=== PATIENT | male | born 1935 | race Caucasian/White ===

== ENCOUNTER 2016-12-06 11:09 | Inpatient (IN) ==
[2016-12-06] MEDS ORDERED: Ondansetron 4 MG/2 ML VIAL IV STA (12:11)
[2016-12-06] MEDS ORDERED: *HR* Morphine 2 MG/ML SYRINGE IVP ONE (12:11)
--- NOTE | 2016-12-06 12:14 | Emergency Department Note ---
Disposition Clinical Impression: Cellulitis of scrotum Disposition: Admitted As Inpatient Condition: Good Time of Disposition: 13:47 Male Urogenital HPI - General Chief complaint: ED Urogenital-Male Stated complaint: Scrotal Pain/HTN Time Seen by Provider: 12/06/16 11:56 Source: patient Mode of arrival: ambulatory Limitations: no limitations Nursing Notes Reviewed: Yes Vital Signs Reviewed: Yes - History of Present Illness HPI Narrative: 81-year-old male presents with 8 weeks of testicle pain and swelling that is worse over the last 1-2 days and has been weeping clear fluid over the last 1-2 days. He states that he is being treated by dermatology for a rash that used to be all over his body, but is now mostly localized to his scrotum. His press tender long goods is in [facility], and he is not sure what the rash is called. He does note that 2 weeks ago he was seen at an outside emergency department and prescribed steroids and antibiotics for this condition. He has not had significant improvement with those. His scrotal skin is thick and red and painful. It is not associated with a nausea, vomiting, chest pain or shortness of breath. He does note that his lower extremities are mildly swollen as well. He denies any headache, neurologic symptoms, respiratory symptoms. He denies any concern for STD. Pt Subjective Complaint: testicle pain - Related Data Home Medications Medication Instructions Recorded Confirmed Acetaminophen [Tylenol] 500 mg PO Q6HR PRN 12/06/16 12/06/16 Amoxicillin/Clavulanate [Augmentin] 875 mg PO BIDWM 12/06/16 12/06/16 PredniSONE [Prednisone] 30 mg PO DAILY 12/06/16 12/06/16 Allergies Allergy/AdvReac Type Severity Reaction Status Date / Time No Known Allergies Allergy Verified 12/06/16 11:14 All systems ED: reviewed and negative except as stated. Past Medical History - Past Medical History Attestation: Yes The following information was validated with the patient. Source: patient Medical history: Reports: no medical history - Social History Smoking Status: Never smoker Alcohol use: Reports: none Drug use: Reports: none Physical Exam - Head Head exam: atraumatic, normocephalic, normal inspection - Eye Eye exam: Present: normal appearance, PERRL, EOMI - ENT ENT exam: normal exam, normal oropharynx, mucous membranes moist - Neck Neck exam: Present: normal inspection, full ROM, trachea midline - Chest Chest inspection: Present: normal inspection, symmetric chest wall rise - Respiratory Respiratory exam: Clear to auscultation bilaterally without wheezes rales or rhonchi Cardiovascular Cardiovascular exam: Present: regular rate, normal rhythm, normal heart sounds - Abdominal Exam Abdominal exam: Present: soft, Non-Tender. Absent: tenderness, distention, guarding, rebound, rigidity Genital exam shows erythematous tender scrotum weeping clear fluid that is significantly tender to touch. - Extremities Exam Mild Pedal edema bilaterally. - Back Exam Back exam: Present: normal inspection, full ROM. Absent: tenderness, CVA tenderness (R), CVA tenderness (L) - Neurological Exam Neurological exam: Present: alert, oriented X3, CN II-XII intact - Psychiatric Psychiatric exam: Present: normal affect, normal mood - Skin Skin exam: Present: warm, dry, intact, normal color - General Limitations: no limitations Course - Reevaluation(s) Reevaluation #1: Symptoms are partially improved after morphine and menstruation. On further history, patient notes that he recently completed Augmentin for antibiotics. Time: 13:26 Reevaluation #2: Case d/w PA at [facility]. Notified that the patient developed his symptoms after her inappropriately used 5-FU on his scrotum that was supposed to be used for precancerous. He developed a severe dermatitis. This did improve partially after treatment with Cipro and steroids, but has since been worsening. He was last seen 3 days ago when his symptoms seem to be worsening in the office at that time. He is tapering his steroids and is nearly complete with them. The PA is aware that the patient will be admitted for concern for scrotal cellulitis and is in agreement with that plan. No sign of Solitario's gangrene on CT scan. We will admit for scrotal cellulitis. Time: 13:46 Reevaluation #3: Accepted by Dr. Chávez. Vital Signs Temperature 98.8 F 12/06/16 11:11 Pulse Rate 85 12/06/16 11:11 Respiratory Rate 18 12/06/16 11:11 Blood Pressure 192/67 12/06/16 11:11 O2 Sat by Pulse Oximetry 99 12/06/16 11:11 Temperature 98.2 F 02/02/17 16:04 Pulse Rate 87 12/06/16 16:04 Respiratory Rate 16 12/06/16 16:04 Blood Pressure 160/84 12/06/16 16:04 O2 Sat by Pulse Oximetry 96 12/06/16 16:04 Oxygen Delivery Oxygen Delivery Room Air Urogenital-Male - Lab Data Result diagrams: 12/06/16 12:27 12/06/16 12:27 Lab Results 12/06/16 12/06/16 12/06/16 Range/Units 12:25 12:27 12:27 WBC 15.5 H (4.3-11.1) K/mcL RBC 4.94 (4.19-5.50) M/mcL Hgb 14.8 (12.9-16.9) g/dL Hct 44.8 (37.5-50.1) % MCV 90.7 (83.0-100.0) fL MCH 30.0 (28.0-33.3) pg MCHC 33.0 (31.6-35.5) g/dL RDW 14.4 (11.5-14.5) % Plt Count 251 (140-400) K/mcL MPV 9.5 (9.4-12.4) fL Immature Gran % 0.8 (0-4) % Seg Neutrophils % 87.1 % Lymphocytes % 6.5 % Monocytes % 5.4 % Eosinophils % 0.1 % Basophils % 0.1 % Neutrophils # 13.5 H (1.6-8.9) K/mcL Lymphocytes # 1.0 (0.6-4.6) K/mcL Monocytes # 0.8 (0.0-1.3) K/mcL Eosinophils # 0.0 (0.0-0.6) K/mcL Basophils # 0.0 (0.0-0.2) K/mcL Sodium 138 (136-145) mEq/L Potassium 3.9 (3.5-4.5) mEq/L Chloride 105 (98-109) mEq/L Carbon Dioxide 22 (19-29) mEq/L BUN 19 (8-26) mg/dL Creatinine 0.87 (0.72-1.25) mg/dL Est GFR ( Amer) > 60 (> 60) Est GFR (Non-Af Amer) > 60 (> 60) BUN/Creatinine Ratio 22 (6-26) Glucose 96 (70-99) mg/dL Calculated Osmolality 288 (280-300) Calcium 8.7 (8.6-10.8) mg/dL Urine Color Yellow (Yellow) Urine Clarity Clear (Clear) Urine pH 6.0 (5.0-8.0) pH Units Ur Specific [place] 1.015 (1.010-1.025) Urine Protein Negative (Neg-Trace) mg/dL Urine Glucose (UA) Normal (Normal) mg/dL Urine Ketones Trace H (Negative) mg/dL Urine Blood Negative (Negative) Urine Nitrite Negative (Negative) Urine Bilirubin Negative (Negative) Urine Urobilinogen Normal (Normal) mg/dL Ur Leukocyte Esterase Negative (Negative) Ur Culture Indicated? NO (NO)
[2016-12-06 12:33] LABS: Bilirubin,Urine Negative (Negative); Blood,Urine Negative (Negative); Clarity,Urine Clear (Clear); Color,Urine Yellow (Yellow); Glucose,Urine (UA) Normal (Normal); Ketones,Urine Trace mg/dL (Negative); Leukocyte Esterase,Urine Negative (Negative); Nitrite,Urine Negative (Negative); Protein,Urine Negative (Neg-Trace); Specific Gravity,Urine 1.015 (1.010-1.025); Urobilinogen,Urine Normal (Normal)
[2016-12-06 12:36] LABS: Basophils % 0.1 %; Eosinophils % 0.1 %; Hematocrit 44.8 % (37.5-50.1); Hemoglobin 14.8 g/dL (12.9-16.9); Immature Granulocytes % 0.8 % (0-4); Lymphocytes % 6.5 %; Mean Corpuscular Volume 90.7 fL (83.0-100.0); Mean Platelet Volume 9.5 fL (9.4-12.4); Monocytes # 0.8 K/mcL (0.0-1.3); Monocytes % 5.4 %; Neutrophils # 13.5 K/mcL (1.6-8.9); Platelet Count 251 K/mcL (140-400); Red Blood Count 4.94 M/mcL (4.19-5.50); Red Cell Distribution Width 14.4 % (11.5-14.5); Segmented Neutrophils % 87.1 %
[2016-12-06 12:45] LABS: BUN/Creatinine Ratio 22 (6-26); Blood Urea Nitrogen 19 mg/dL (8-26); Calcium 8.7 mg/dL (8.6-10.8); Carbon Dioxide 22 mEq/L (19-29); Chloride 105 mEq/L (98-109); Glucose 96 mg/dL (70-99); Osmolality,Calculated 288 (280-300); Potassium 3.9 mEq/L (3.5-4.5); Sodium 138 mEq/L (136-145); eGFR For African Americans > 60 (> 60); eGFR For Non-African Americans > 60 (> 60)
[2016-12-06] MEDS ORDERED: Piperacillin/Tazobactam 4.5 GM in D5% in Water (Mini-Bag+) 100 ML IVPB ONE (13:33)
[2016-12-06] MEDS ORDERED: *HR* HYDROmorphone (PF) 1 MG/ML SYRINGE IVP ONE (13:43)
--- NOTE | 2016-12-06 13:47 | Emergency Department Note ---
START Narrative - START START: I examined this patient and my medical decision-making was reviewed with the REGIONAL LOSS PREVENTION MANAGER/PA/Advanced Practice Nurse/Resident Physician. I agree with the documented findings, disposition and treatment plan as described except to the extent set forth below. ED attending note: Patient seen with emergency medicine resident Dr. Saeed. Please see a copy of his note for details of the H&P, evaluation, management and disposition of this patient. We independently had [id number] contact with the patient Briefly: This 81-year-old male has a rash and swollen scrotum. He was being prescribed 5-fluorouracil for cancer treatment but he thought was a rash cream in place local scrotum patient developed a cellulitis CT scan shows that there is no gas forming bacteria mild cellulitis without any intrinsic invasiveness. Elevated white count. Patient be admitted for IV antibiotics. Patient stable.
[2016-12-06] MEDS ORDERED: MOM Conc 10 ML UD.LIQ PO PRN (16:01)
[2016-12-06] MEDS ORDERED: Naloxone 0.4 MG/ML INJ IVP PRN (16:01)
[2016-12-06] MEDS ORDERED: Acetaminophen 325 MG TABLET PO PRN (16:01)
[2016-12-06] MEDS ORDERED: Ondansetron 4 MG/2 ML VIAL IVP PRN (16:01)
--- NOTE | 2016-12-06 16:19 | Internal Med History&Physical ---
<Judi Shields - Last Filed: 12/06/16 18:35> Date of Encounter: 12/06/16 Time of Encounter: 15:40 Assessment and Plan (1) Cellulitis of scrotum Current visit: Yes Status: Acute Pt was recently diagnosed with scrotal cellullitis at dermatology office in [place] and was placed on Augmentin and Prednisone, which he is currently still taking. Pt's scrotum is red, warm, excoriated, painful to light touch and is draining small amount of serous fluid. Pt states that at times it causes his clothing to stick and when he removes his clothing, it tears the skin and causes more pain. Skin and blood cultures are pending. CT shos prominent soft tissue swelling and fluid within scrotal tissues without foci of gas and hydrocele. White count is elevated at 15.5 today. Tylenol 675mg po q6h prn mild pain [place] 5/325mg po q4h prn moderate pain Monitor labs Blood and urine cultures pending Continue Zosyn 3.375g IV x 3 Vancomycin 1,000mg IV BID (2) Hypertension Current visit: Yes Status: Chronic Pt was taken off of his medications for suspected drug rash. Pt recalls taking HCTZ 12.5mg po daily. BP 160/84 last reading, will order first dose now. Pt denies dizziness, REINA. Will continue to monitor VS throughout admission and restart HCTZ 12.5mg po daily. Qualifiers: Hypertension type: essential hypertension Qualified Code(s): I10 - Essential (primary) hypertension Internal Medicine - H&P: HPI Chief complaint: scrotal swelling and pain Admitted From: Home Plans for Post Hospital Care: Home History of present illness: Mr. Valentin is a 81 year old male who presents to the ED with approximately 8 week history of scrotal pain, with redness, swelling, and cl drainage x 1 week. Pt has been seeing family resource management professor in [place], [place] for about a year and a half for pruritic rash, which apparently has cleared up. Pt has also been using 5 Fluorouracil that was meant for his pre-cancerous lesions, as an anti-itch cream for his scrotum. Pt also was being treated for a possible drug rash and was told to stop all of his medications, including HCTZ, fish oil, vitamins, and aspirin, which he did. He was diagnosed with scrotal cellulitis and was placed on Augmentin and Prednisone within the last week. Dermatology told him that they cannot write prescriptions for pain medication and told him to take his 's Oxycodone 10mg, which he has been taking primarily at night to help him sleep. His scrotum is red, warm, painful to touch, and is excoriated in multiple places. Serous drng noted to skin and underwear during exam. Pain is constant, rated "30 out of 10", and nothing really relieves it. Sometimes the pain is so bad that he has to kneel on the floor with his legs spread apart for over an hour and he then can get up. Pt and his are poor historians, ER physician spoke with dermatology PA to gather information. He denies urinary symptoms or fever, no abd pain, n/v/d. His past medical history is pertinent for R sided CVA in 1984, HTN, and this rash for the last year and a half. Past Med Surg Social Fam HX - Past Medical History Source: patient, obtained from family Medical history: CVA - Social History Smoking Status: Never smoker Alcohol use: none Drug use: none Internal Medicine - H&P: Meds Acetaminophen [Tylenol] 500 mg PO Q6HR PRN 12/06/16 [History] Amoxicillin/Clavulanate [Augmentin] 875 mg PO BIDWM 12/06/16 [History] PredniSONE [Prednisone] 30 mg PO DAILY 12/06/16 [History] Allergies No Known Allergies Allergy (Verified 12/06/16 11:14) All Systems PM: A 10-system review of systems was performed and is negative for pertinent findings except as documented above in the HPI. - Constitutional Constitutional: no chills, no fever(s), no weakness - Cardiovascular Cardiovascular ROS IM: no edema - Gastrointestinal Gastrointestinal: no abdominal pain, no diarrhea, no nausea, no vomiting - Genitourinary Genitourinary ROS male: scrotal swelling, testicular pain, no difficulty urinating, no dysuria, no flank pain, no penile discharge, no urinary frequency , no urinary incontinence, no urinary urgency - Musculoskeletal Musculoskeletal ROS IM: no back pain - Integumentary Integumentary IM: pruritus, rash - Constitutional Vitals: Temp Pulse Resp BP Pulse Ox 98.2 F 87 16 160/84 96 12/06/16 16:04 12/06/16 16:04 12/06/16 16:04 12/06/16 16:04 12/06/16 16:04 General appearance: Present: A&O X 3, pleasant Exam: Pt has difficulty walking, sitting, stands for exam. - Neck Neck exam general surgery: Absent: lymphadenopathy, tenderness - Respiratory Respiratory exam: Present: CTAB. Absent: chest wall tenderness, decreased breath sounds, rhonchi, wheezes - Cardiovascular Cardiovascular exam: Present: RRR, +S1, +S2. Absent: diastolic murmur, systolic murmur, tachycardia - GI/Abdominal GI/Abdominal exam: Present: distended, soft. Absent: tenderness - Neurological Exam Neurological exam: Present: alert, oriented X3, no focal deficits, strengths equal and symetr throughout - Skin Skin exam: Present: excoriation, warm - Expanded Skin Exam Distribution of rash: Present: genitals Description of rash: Present: blisters, discharge, swelling, tenderness Internal Med - H&P Results - Labs CBC & Chem 7: 12/06/16 12:27 12/06/16 12:27 <Melody Horner - Last Filed: 12/06/16 18:54> Date of Encounter: 12/06/16 Time of Encounter: 18:00 Internal Medicine - H&P: HPI History of present illness: Mr. Valentin is a 81 year old male All Systems PM: A 10-system review of systems was performed and is negative for pertinent findings except as documented above in the HPI. - Constitutional Vitals: Temp Pulse Resp BP Pulse Ox 98.2 F 87 16 160/84 96 12/06/16 16:04 12/06/16 16:04 12/06/16 16:04 12/06/16 16:04 12/06/16 16:04 Internal Med - H&P Results - Labs CBC & Chem 7: 12/06/16 12:27 12/06/16 12:27 - Attending Attestation Patient is an 81y/o male with PMH of HTN, CVA (with no residual defects), and chronic diffuse body rash who presents to the ER for evaluation of worsening scrotal rash and pain. Patient was seen and examined at bedside. Resting in bed and states his pain is finally controlled. He received Dilaudid in the ER which provided him with adequate pain relief however the pain worsens with any movement. It is unclear of the medications patient was using prior to his hospitalization however the scrotal rash initially started about 8 weeks ago and for the last two weeks has worsened significantly. He was currently undergoing treatment for the rash with his family resource management professor who suggested he comes to the ER due to worsening symptoms. He was taking Augmentin and Prednisone prior to his hospitalization. In the ER, he received Zosyn. Patient is noted to have leukocytosis with significant erythema and serous drainage at the scrotal sac. He will be started on Vancomycin in addition to Zosyn. His home medications will be started for his HTN. If hypertension persists, will add Hydralazine PRN. Consider ID evaluation with Dr. Encarnacion if symptoms do not improve with current abx regimen. Dilaudid prn pain DVT ppx I have discussed the case with the ORCHARDIST (Judi Shields) and agree with her assessment and plan.
[2016-12-06] MEDS: *HR* HYDROcodone/Acet 5/325 mg TABLET PO PRN (16:34)
[2016-12-06] MEDS: hydroCHLOROthiazide 25 MG TABLET PO SCH (16:39)
[2016-12-06] MEDS ORDERED: hydroCHLOROthiazide 25 MG TABLET PO SCH (19:15)
[2016-12-06] MEDS: *HR* Heparin 5,000 UNIT/ML VIAL SQ SCH (21:12)
[2016-12-06] MEDS: Vancomycin 1,250 MG in D5% in Water 250 ML IVPB SCH (21:12)
[2016-12-06] MEDS: *HR* HYDROmorphone (PF) 1 MG/ML SYRINGE IVP PRN (23:51)
[2016-12-07] MEDS ORDERED: Nitroglycerin 0.4 MG TAB.SUBL SL ONE (00:46)
[2016-12-07] MEDS ORDERED: Aspirin 81 MG TAB.CHEW PO ONE (00:46)
[2016-12-07] MEDS ORDERED: *HR* Morphine 2 MG/ML SYRINGE IVP ONE (00:46)
[2016-12-07] MEDS ORDERED: *HR* Metoprolol 5 MG/5 ML VIAL IVP ONE (01:09)
[2016-12-07] MEDS ORDERED: Aspirin 81 MG TAB.CHEW ONE (01:18)
[2016-12-07] MEDS ORDERED: Pantoprazole 40 MG in 0.9 % Sodium Chloride 50 ML IVPB ONE (01:26)
[2016-12-07] MEDS ORDERED: GI Cocktail 40 ML EACH PO ONE (01:26)
[2016-12-07 02:45] LABS: Basophils % 0.1 %; Eosinophils % 0.1 %; Hematocrit 46.8 % (37.5-50.1); Hemoglobin 15.7 g/dL (12.9-16.9); Immature Granulocytes % 0.6 % (0-4); Immature Platelets 3.6 % (1.1-6.1); Lymphocytes # 1.3 K/mcL (0.6-4.6); Lymphocytes % 11.2 %; Mean Corpuscular HGB Conc 33.5 g/dL (31.6-35.5); Mean Corpuscular Hemoglobin 30.4 pg (28.0-33.3); Mean Corpuscular Volume 90.5 fL (83.0-100.0); Mean Platelet Volume 9.7 fL (9.4-12.4); Monocytes # 0.9 K/mcL (0.0-1.3); Monocytes % 7.6 %; Neutrophils # 9.7 K/mcL (1.6-8.9); Platelet Count 298 K/mcL (140-400); Red Blood Count 5.17 M/mcL (4.19-5.50); Red Cell Distribution Width 14.4 % (11.5-14.5); Segmented Neutrophils % 80.4 %
[2016-12-07 02:50] LABS: Prothrombin Time 11.1 Seconds (9.4-12.1)
[2016-12-07 02:53] LABS: Activated Partial Thrombo Time 27.1 Seconds (26.0-36.0)
[2016-12-07 02:56] LABS: BUN/Creatinine Ratio 19 (6-26); Blood Urea Nitrogen 20 mg/dL (8-26); Carbon Dioxide 22 mEq/L (19-29); Chloride 104 mEq/L (98-109); Glucose 102 mg/dL (70-99); Osmolality,Calculated 291 (280-300); Sodium 139 mEq/L (136-145); eGFR For African Americans > 60 (> 60); eGFR For Non-African Americans > 60 (> 60)
[2016-12-07 02:58] LABS: Potassium 4.1 mEq/L (3.5-4.5)
[2016-12-07] MEDS ORDERED: Nitroglycerin 0.4 MG TAB.SUBL SL PRN (03:14)
[2016-12-07] MEDS ORDERED: *HR* Morphine 2 MG/ML SYRINGE IVP PRN (03:15)
[2016-12-07] MEDS: Piperacillin/Tazobactam 3.375 GM in D5% in Water (Mini-Bag+) 100 ML IVPB SCH ×3 (04:16→20:01)
[2016-12-07] MEDS: Vancomycin 1,250 MG in D5% in Water 250 ML IVPB SCH ×2 (06:20→17:31)
[2016-12-07] MEDS: *HR* Heparin 5,000 UNIT/ML VIAL SQ SCH ×2 (06:20→17:30)
--- NOTE | 2016-12-07 07:10 | Event Note ---
Date of Encounter: 12/07/16 Time of Encounter: 00:45 Patient with complaint of substernal cp. Nurse sent [email or web address] message at 00:44 to this effect. EKG with RBBB, R axis deviation, and low voltage in inferior leads , no comparison available. Pain described as crushing pain greater than 10/10. Pain radiated to jaw. Patient was adamant that pain was due to gas. He stated that belching resolved the jaw pain. Initial trop was 0.09. Serial trops, pending.
[2016-12-07] MEDS: hydroCHLOROthiazide 25 MG TABLET PO SCH (08:29)
--- NOTE | 2016-12-07 08:40 | Internal Med Progress Note ---
<Justo Menendez - Last Filed: 12/07/16 11:33> Date of Encounter: 12/07/16 Time of Encounter: 08:39 - Assessment and plan (1) Scrotal erythema Current Visit: Yes Status: Acute Assessment and plan: Pelvic CT reviewed, no focal gas but prominent swelling and fluid in tissue, cellulitis vs other etiologies, will increase pain med, urology consult, leukocytosis slightly improved, con't vanco and zosyn for now. (2) Cellulitis of scrotum Current Visit: Yes Status: Acute Assessment and plan: Possible cellulitis, looks very extensive and painful, will con't vanco and zosyn for now until urology seen him. (3) Elevated troponin Current Visit: Yes Status: Acute Assessment and plan: Adynamic, likely 2/2 demand ischemia in a setting of scrotum cellulitis with sepsis, no chest pain this AM. (4) Hypertension Current Visit: Yes Status: Chronic Assessment and plan: Still hypertensive, will increase HCTZ. (5) DVT prophylaxis Current Visit: Yes Status: Acute Assessment and plan: Heparin SQ. - Subjective Interval history: Pt seen and examined, still very painful scrotum to even light touch, no nausea/ emesis. - Constitutional Vitals: Temp Pulse Resp BP Pulse Ox 97.8 F 60 16 176/73 95 12/07/16 06:38 12/07/16 06:38 12/07/16 06:38 12/07/16 06:38 12/07/16 06:38 General appearance: Present: cooperative, A&O X 3, answers questions appropriately - Head Head exam: Present: atraumatic, normocephalic - Eye Eye exam: Present: PERRL, conjuntiva pink, sclera anicteric Pupils: Present: PERRL - Neck Neck exam general surgery: Present: supple, trachea midline. Absent: lymphadenopathy - Respiratory Respiratory exam: Present: CTAB. Absent: accessory muscle use, rales, rhonchi, wheezes - Cardiovascular Cardiovascular exam: Present: RRR, +S1, +S2. Absent: diastolic murmur, gallop, rubs, systolic murmur - GI/Abdominal GI/Abdominal exam: Present: normal bowel sounds, soft, no peritoneal signs. Absent: distended, tenderness - exam: Present: scrotal swelling (erythematous, very tender to touch, no necrotic skin change), testicular tenderness. Absent: urethral discharge - Extremities Exam Extremities exam: Present: warm, radial pulses palpable and symetrical. Absent : calf tenderness, cyanotic, pedal edema - Neurological Exam Neurological exam: Present: CN II-XII intact, oriented X3, no focal deficits. Absent: pronater drift, facial droop, speech deficit - Skin Skin exam: Present: dry, intact Internal Medicine: Result - Labs CBC & Chem 7: 12/07/16 01:39 12/07/16 01:39 Labs: Short CBC 12/07/16 Range/Units 01:39 WBC 12.0 H (4.3-11.1) K/mcL Hgb 15.7 (12.9-16.9) g/dL Hct 46.8 (37.5-50.1) % Plt Count 298 (140-400) K/mcL Neutrophils # 9.7 H (1.6-8.9) K/mcL BMP 12/07/16 01:39 Sodium 139 Potassium 4.1 Chloride 104 Carbon Dioxide 22 BUN 20 Creatinine 1.04 Glucose 102 H Calcium 9.0 Cardiac Enzymes 12/07/16 12/07/16 Range/Units 01:39 06:24 Troponin I 0.09 H* 0.09 H* (0-0.03) ng/mL - ABG Interpretation ABG results: PT/INR, D-dimer PT 11.1 Seconds (9.4-12.1) 12/07/16 01:39 Consult Discharge Plan - Plan Referrals: Scarlett Brito CNP [Primary Care Provider] - <Max Street - Last Filed: 12/07/16 13:24> Date of Encounter: 12/07/16 - Constitutional Vitals: Temp Pulse Resp BP Pulse Ox 98.0 F 66 16 118/54 98 12/07/16 10:24 12/07/16 10:24 12/07/16 10:24 12/07/16 10:24 12/07/16 10:24 Internal Medicine: Result - Labs CBC & Chem 7: 12/07/16 01:39 12/07/16 01:39 - ABG Interpretation ABG results: PT/INR, D-dimer PT 11.1 Seconds (9.4-12.1) 12/07/16 01:39 - Attending Attestation I examined this patient and my medical decision-making was reviewed with the FLATWARE MAKER/PA/Advanced Practice Nurse/Resident Physician. I agree with the documented findings, disposition and treatment plan as described except to the extent set forth below. The patient was seen and examined during rounds. Extremities with the physical examination findings, assessment and plan as documented by Dr. Justo Menendez. Briefly, patient initially had criteria for sepsis likely secondary to a scrotal infection consistent with cellulitis. CT scan of the pelvis did not reveal findings consistent with Solitario's gangrene, no crepitations noted in the physical exam. We will continue with broad- spectrum antibiotics, pain control. A consultation with urology has been requested.
[2016-12-07] MEDS: *HR* HYDROcodone/Acet 5/325 mg TABLET PO PRN (09:28)
[2016-12-07] MEDS: *HR* HYDROmorphone (PF) 1 MG/ML SYRINGE IVP PRN ×3 (09:29→20:01)
[2016-12-07] MEDS ORDERED: *HR* HYDROmorphone (PF) 1 MG/ML SYRINGE IVP PRN (10:46)
[2016-12-07] MEDS ORDERED: Lidocaine (Urojet) 10 ML JEL.PF.APP TP PRN (17:30)
--- NOTE | 2016-12-07 17:30 | Urology - Consult Note ---
Date of Encounter: 12/07/16 Time of Encounter: 17:19 - Assessment and Plan (1) Rash on scrotum Current Visit: Yes Status: Acute Assessment and plan: Will add lidocaine jelly for pain control. We will perform biopsy later this weekend. Unsure of etiology this time. Urology CN:[facility] Consult date: 12/07/16 Reason for consult Urology: Other (scrotal rash) Requesting physician: Max Street History of present illness: Mr. Valentin is a very pleasant 81-year-old male who states he has had a scrotal rash for the past 8 weeks. Patient states he was evaluated by another urologist and table games floor supervisor for this. He states he was placed on some sort of cream which has not helped. Patient also was placed on oral steroids which has not seemed to help. Patient arrived to our ED yesterday where CT scan was done which showed scrotal wall thickening without obvious cellulitis. Patient did have a leukocytosis of 15,000. This has improved with IV fluids as well as IV antibiotics. Patient has not had a biopsy of his scrotal lesion. Patient states that he has had a generalized rash throughout his body for the past 8 months. Dermatology has performed a biopsy of this. Unknown results of this biopsy. Past Med Surg Social Fam HX - Past Medical History Medical history: no medical history Psychiatric history: no psych history - Social History Smoking Status: Never smoker Smokeless Tobacco Status: No Alcohol use: none Drug use: none Medications and Allergies Acetaminophen [Tylenol] 500 mg PO Q6HR PRN 12/06/16 [History] Amoxicillin/Clavulanate [Augmentin] 875 mg PO BIDWM 12/06/16 [History] PredniSONE [Prednisone] 30 mg PO DAILY 12/06/16 [History] Allergies No Known Allergies Allergy (Verified 12/06/16 11:14) Review of Systems - Constitutional no chills - EENT Nose, mouth and throat: no dizziness - Cardiovascular no chest pain - Respiratory no cough - Gastrointestinal no abdominal pain - Genitourinary as per HPI - Musculoskeletal no back pain - Integumentary other (Multiple areas of rash throughout body.) - Neurological no confusion - Psychiatric no anxiety - Hematologic/Lymphatic no easy bleeding - Allergic/Immunologic no throat swelling Exam Initial Vital Signs Temp Pulse Resp BP Pulse Ox 98.8 F 85 18 192/67 99 12/06/16 11:11 12/06/16 11:11 12/06/16 11:11 12/06/16 11:11 12/06/16 11:11 - General physical appearance Present: well developed - Eyes Present: PERRL - ENT Present: normal nares - Neck Present: no masses - Respiratory Present: normal respiratory effort - Cardiovascular Cardiovascular exam IM: RRR - Abdomen Abdomen: Present: soft - Genitourinary other (Red erythematous rash on both sides of the scrotum sparing the median raphae. Markedly tender to palpation.) - Integumentary Present: other (Multiple areas on legs of rash.) - Neurologic Present: normal coordination - Musculoskeletal Present: normal gait Urology Results - Labs 12/07/16 01:39 12/07/16 01:39 Abnormal lab results WBC 12.0 K/mcL (4.3-11.1) H 12/07/16 01:39 Neutrophils # 9.7 K/mcL (1.6-8.9) H 12/07/16 01:39 Glucose 102 mg/dL (70-99) H 12/07/16 01:39 Troponin I 0.10 ng/mL (0-0.03) H* 12/07/16 13:37 Urine Ketones Trace mg/dL (Negative) H 12/06/16 12:25 All other labs normal. - Imaging CT scan - pelvis: image reviewed Consult Discharge Plan - Plan Referrals: Scarlett Brito CNP [Primary Care Provider] -
[2016-12-07] MEDS: *HR* Morphine 2 MG/ML SYRINGE IV PRN ×2 (17:31→22:40)
[2016-12-07] MEDS ORDERED: Lidocaine Jelly 11 ml Syringe TP PRN (17:42)
[2016-12-08] MEDS: Piperacillin/Tazobactam 3.375 GM in D5% in Water (Mini-Bag+) 100 ML IVPB SCH ×3 (05:02→20:14)
[2016-12-08] MEDS: *HR* HYDROmorphone (PF) 1 MG/ML SYRINGE IVP PRN (05:02)
[2016-12-08] MEDS: Vancomycin 1,250 MG in D5% in Water 250 ML IVPB SCH (05:03)
[2016-12-08 05:09] LABS: Hematocrit 43.3 % (37.5-50.1); Hemoglobin 14.3 g/dL (12.9-16.9); Red Blood Count 4.76 M/mcL (4.19-5.50); Red Cell Distribution Width 14.6 % (11.5-14.5)
[2016-12-08 05:10] LABS: Basophils % 0.1 %; Eosinophils # 0.1 K/mcL (0.0-0.6); Eosinophils % 1.5 %; Immature Granulocytes % 0.4 % (0-4); Lymphocytes # 1.3 K/mcL (0.6-4.6); Lymphocytes % 18.8 %; Mean Platelet Volume 9.5 fL (9.4-12.4); Monocytes # 0.6 K/mcL (0.0-1.3); Monocytes % 8.1 %; Neutrophils # 5.1 K/mcL (1.6-8.9); Platelet Count 200 K/mcL (140-400); Segmented Neutrophils % 71.1 %
[2016-12-08 05:27] LABS: C-Reactive Protein 6 mg/L (Less than 5)
[2016-12-08 05:35] LABS: Alanine Aminotransferase 18 Units/L (0-55); Albumin/Globulin Ratio 1.2 (1.1-2.2); Alkaline Phosphatase 41 Units/L (38-126); Aspartate Amino Transferase 16 Units/L (5-34); BUN/Creatinine Ratio 18 (6-26); Bilirubin,Total 0.8 mg/dL (0.2-1.2); Blood Urea Nitrogen 18 mg/dL (8-26); Calcium 8.4 mg/dL (8.6-10.8); Carbon Dioxide 26 mEq/L (19-29); Chloride 104 mEq/L (98-109); Globulin 2.5 g/dL (2.4-3.5); Glucose 88 mg/dL (70-99); Osmolality,Calculated 291 (280-300); Potassium 4.1 mEq/L (3.5-4.5); Sodium 140 mEq/L (136-145); Total Protein 5.5 g/dL (6.0-8.3); eGFR For African Americans > 60 (> 60); eGFR For Non-African Americans > 60 (> 60)
[2016-12-08 05:50] LABS: Ferritin 804 ng/ml (22-275)
[2016-12-08 05:54] LABS: HIV-1&2 Antibody & p24 Ag Nonreactive (Nonreactive); Hepatitis A Antibody IgM Nonreactive (Nonreactive); Hepatitis B Core IgM Nonreactive (Nonreactive); Hepatitis B Surface Antigen Nonreactive (Nonreactive); Hepatitis C Virus Antibody Nonreactive (Nonreactive)
[2016-12-08] MEDS: *HR* Heparin 5,000 UNIT/ML VIAL SQ SCH ×2 (06:33→18:45)
--- NOTE | 2016-12-08 07:39 | Internal Med Progress Note ---
<Justo Menendez - Last Filed: 12/08/16 12:09> Date of Encounter: 12/08/16 Time of Encounter: 07:39 - Assessment and plan (1) Scrotal erythema Current Visit: Yes Status: Acute Assessment and plan: Pelvic CT reviewed, no focal gas but prominent swelling and fluid in tissue, cellulitis vs other etiologies, increased pain med, urology consulted, leukocytosis resolved with IV abxs and somehow erythema looks better, hepatits panel/HIV negative, slightly elevated inflammatory markers, VADIM/syphilis test pending. Urology will biopsy it tmw. (2) Cellulitis of scrotum Current Visit: Yes Status: Acute Assessment and plan: Possible cellulitis, looks very extensive and painful, will con't vanco and zosyn for now, leukocytosis and erythema improved. (3) Elevated troponin Current Visit: Yes Status: Acute Assessment and plan: Adynamic, likely 2/2 demand ischemia in a setting of scrotum cellulitis with sepsis, no chest pain this AM. (4) Hypertension Current Visit: Yes Status: Chronic Assessment and plan: Con't HCTZ. Qualifiers: Hypertension type: essential hypertension Qualified Code(s): I10 - Essential (primary) hypertension (5) DVT prophylaxis Current Visit: Yes Status: Acute Assessment and plan: Heparin SQ. - Subjective Interval history: Pt seen and examined, still very painful scrotum, erythema looks slightly better. - Constitutional Vitals: Temp Pulse Resp BP Pulse Ox 98.5 F 65 14 139/61 97 12/08/16 03:28 12/08/16 03:28 12/08/16 03:28 12/08/16 05:30 12/08/16 03:28 General appearance: Present: cooperative, mild distress, A&O X 3, answers questions appropriately - Head Head exam: Present: atraumatic, normocephalic - Eye Eye exam: Present: PERRL, conjuntiva pink, sclera anicteric Pupils: Present: PERRL - Neck Neck exam general surgery: Present: supple, trachea midline. Absent: lymphadenopathy - Respiratory Respiratory exam: Present: CTAB. Absent: accessory muscle use, rales, rhonchi, wheezes - Cardiovascular Cardiovascular exam: Present: RRR, +S1, +S2. Absent: diastolic murmur, gallop, rubs, systolic murmur - GI/Abdominal GI/Abdominal exam: Present: normal bowel sounds, soft, no peritoneal signs. Absent: distended, tenderness - exam: Present: scrotal swelling (slightly better erythema but still very painful) - Extremities Exam Extremities exam: Present: warm, radial pulses palpable and symetrical. Absent : calf tenderness, cyanotic, pedal edema - Neurological Exam Neurological exam: Present: CN II-XII intact, oriented X3, no focal deficits. Absent: pronater drift, facial droop, speech deficit - Skin Skin exam: Present: dry, intact Internal Medicine: Result - Labs CBC & Chem 7: 12/08/16 04:55 12/08/16 04:55 Labs: Short CBC 12/08/16 Range/Units 04:55 WBC 7.1 (4.3-11.1) K/mcL Hgb 14.3 (12.9-16.9) g/dL Hct 43.3 (37.5-50.1) % Plt Count 200 (140-400) K/mcL Neutrophils # 5.1 (1.6-8.9) K/mcL BMP 12/08/16 04:55 Sodium 140 Potassium 4.1 Chloride 104 Carbon Dioxide 26 BUN 18 Creatinine 1.01 Glucose 88 Calcium 8.4 L Cardiac Enzymes 12/07/16 Range/Units 13:37 Troponin I 0.10 H* (0-0.03) ng/mL Liver Function 12/08/16 Range/Units 04:55 Total Bilirubin 0.8 (0.2-1.2) mg/dL AST 16 (5-34) Units/L ALT 18 (0-55) Units/L Alkaline Phosphatase 41 (38-126) Units/L Albumin 3.0 L (3.5-5.0) g/dL - ABG Interpretation ABG results: PT/INR, D-dimer PT 11.1 Seconds (9.4-12.1) 12/07/16 01:39 Consult Discharge Plan - Plan Referrals: Scarlett Brito CNP [Primary Care Provider] - <Max Street - Last Filed: 12/08/16 15:07> Date of Encounter: 12/08/16 - Constitutional Vitals: Temp Pulse Resp BP Pulse Ox 98.6 F 87 16 129/69 93 L 12/08/16 10:32 12/08/16 10:32 12/08/16 10:32 12/08/16 10:32 12/08/16 10:32 Internal Medicine: Result - Labs CBC & Chem 7: 12/08/16 04:55 12/08/16 04:55 Labs: Short CBC 12/08/16 Range/Units 04:55 WBC 7.1 (4.3-11.1) K/mcL Hgb 14.3 (12.9-16.9) g/dL Hct 43.3 (37.5-50.1) % Plt Count 200 (140-400) K/mcL Neutrophils # 5.1 (1.6-8.9) K/mcL BMP 12/08/16 04:55 Sodium 140 Potassium 4.1 Chloride 104 Carbon Dioxide 26 BUN 18 Creatinine 1.01 Glucose 88 Calcium 8.4 L Liver Function 12/08/16 Range/Units 04:55 Total Bilirubin 0.8 (0.2-1.2) mg/dL AST 16 (5-34) Units/L ALT 18 (0-55) Units/L Alkaline Phosphatase 41 (38-126) Units/L Albumin 3.0 L (3.5-5.0) g/dL - ABG Interpretation ABG results: PT/INR, D-dimer PT 11.1 Seconds (9.4-12.1) 12/07/16 01:39 - Attending Attestation I examined this patient and my medical decision-making was reviewed with the PROP CUTTER/PA/Advanced Practice Nurse/Resident Physician. I agree with the documented findings, disposition and treatment plan as described except to the extent set forth below. The patient was seen and examined in rounds, his scrotal swelling has decreased, no fever, leukocytosis has resolved. We will continue with both IV vancomycin and Zosyn. For biopsy tomorrow. Urology following.
[2016-12-08] MEDS: hydroCHLOROthiazide 25 MG TABLET PO SCH (08:46)
--- NOTE | 2016-12-08 09:29 | Urology Progress Note ---
Date of Encounter: 12/08/16 Time of Encounter: 09:28 - Assessment and Plan (1) Rash on scrotum Current Visit: Yes Status: Acute Assessment and plan: plan on biopsy tomorrow. Progress Note Narrative: patient with scrotal rash of unknown origin. still with pain in scrotum. no fevers. WBC resolved. lidocaine did not help Objective Initial Vital Signs Temp Pulse Resp BP Pulse Ox 98.8 F 85 18 192/67 99 12/06/16 11:11 12/06/16 11:11 12/06/16 11:11 12/06/16 11:11 12/06/16 11:11 - General physical appearance Present: well developed - Abdomen Present: soft - Genitourinary Present: other (scrotum with same rash demarkation) - Labs 12/08/16 04:55 12/08/16 04:55 Diabetes panel 12/08/16 Range/Units 04:55 Sodium 140 (136-145) mEq/L Potassium 4.1 (3.5-4.5) mEq/L Chloride 104 (98-109) mEq/L Carbon Dioxide 26 (19-29) mEq/L BUN 18 (8-26) mg/dL Creatinine 1.01 (0.72-1.25) mg/dL Glucose 88 (70-99) mg/dL Calcium 8.4 L (8.6-10.8) mg/dL AST 16 (5-34) Units/L ALT 18 (0-55) Units/L Alkaline Phosphatase 41 (38-126) Units/L Albumin 3.0 L (3.5-5.0) g/dL Calcium panel 12/08/16 Range/Units 04:55 Calcium 8.4 L (8.6-10.8) mg/dL Albumin 3.0 L (3.5-5.0) g/dL Pituitary panel 12/08/16 Range/Units 04:55 Sodium 140 (136-145) mEq/L Potassium 4.1 (3.5-4.5) mEq/L Chloride 104 (98-109) mEq/L Carbon Dioxide 26 (19-29) mEq/L BUN 18 (8-26) mg/dL Creatinine 1.01 (0.72-1.25) mg/dL Glucose 88 (70-99) mg/dL Calcium 8.4 L (8.6-10.8) mg/dL Adrenal panel 12/08/16 Range/Units 04:55 Sodium 140 (136-145) mEq/L Potassium 4.1 (3.5-4.5) mEq/L Chloride 104 (98-109) mEq/L Carbon Dioxide 26 (19-29) mEq/L BUN 18 (8-26) mg/dL Creatinine 1.01 (0.72-1.25) mg/dL Glucose 88 (70-99) mg/dL Calcium 8.4 L (8.6-10.8) mg/dL Total Bilirubin 0.8 (0.2-1.2) mg/dL AST 16 (5-34) Units/L ALT 18 (0-55) Units/L Alkaline Phosphatase 41 (38-126) Units/L Albumin 3.0 L (3.5-5.0) g/dL Consult Discharge Plan - Plan Referrals: Scarlett Brito, LENA [Primary Care Provider] -
[2016-12-08] MEDS: *HR* Morphine 2 MG/ML SYRINGE IV PRN ×2 (12:20→18:44)
[2016-12-08] MEDS: Vancomycin 1,000 MG in D5% in Water 250 ML IVPB SCH (18:44)
[2016-12-09] MEDS: *HR* HYDROmorphone (PF) 1 MG/ML SYRINGE IVP PRN ×2 (00:18→16:14)
[2016-12-09] MEDS: *HR* Morphine 2 MG/ML SYRINGE IV PRN ×5 (03:54→23:52)
[2016-12-09] MEDS: Piperacillin/Tazobactam 3.375 GM in D5% in Water (Mini-Bag+) 100 ML IVPB SCH ×3 (04:02→19:28)
[2016-12-09] MEDS: Vancomycin 1,000 MG in D5% in Water 250 ML IVPB SCH ×2 (06:07→17:45)
[2016-12-09] MEDS: *HR* Heparin 5,000 UNIT/ML VIAL SQ SCH ×2 (06:09→17:45)
--- NOTE | 2016-12-09 07:21 | Internal Med Progress Note ---
<Justo Menendez - Last Filed: 12/09/16 10:50> Date of Encounter: 12/09/16 Time of Encounter: 07:21 - Assessment and plan (1) Scrotal erythema Current Visit: Yes Status: Acute Assessment and plan: Pelvic CT reviewed, no focal gas but prominent swelling and fluid in tissue, cellulitis vs other etiologies, con't pain med, urology consulted, leukocytosis resolved with IV abxs and somehow erythema looks better, hepatits panel/HIV negative, slightly elevated inflammatory markers, VADIM/syphilis test pending. S/ p biopsy today, will wait for puppet master to read. (2) Cellulitis of scrotum Current Visit: Yes Status: Acute Assessment and plan: Possible cellulitis, looks very extensive and painful, failed outpt augmentin ( only bacteria not covered other than vanco and zosyn are MRSA and pseudomonas), after starting vanco and zosyn, leukocytosis resolved and erythema looks somewhat better, con't vanco and zosyn for now. (3) Elevated troponin Current Visit: Yes Status: Acute Assessment and plan: Adynamic, likely 2/2 demand ischemia in a setting of scrotum cellulitis with sepsis, no chest pain this AM. (4) Hypertension Current Visit: Yes Status: Chronic Assessment and plan: Con't HCTZ. Qualifiers: Hypertension type: essential hypertension Qualified Code(s): I10 - Essential (primary) hypertension (5) DVT prophylaxis Current Visit: Yes Status: Acute Assessment and plan: Heparin SQ. - Subjective Interval history: Pt seen and examined, still painful scrotum, s/p biopsy today. - Constitutional Vitals: Temp Pulse Resp BP Pulse Ox 99.2 F 75 17 137/62 98 12/09/16 07:12 12/09/16 07:12 12/09/16 07:12 12/09/16 07:12 12/09/16 07:12 General appearance: Present: cooperative, A&O X 3, answers questions appropriately - Head Head exam: Present: atraumatic, normocephalic - Eye Eye exam: Present: PERRL, conjuntiva pink, sclera anicteric Pupils: Present: PERRL - Neck Neck exam general surgery: Present: supple, trachea midline. Absent: lymphadenopathy - Respiratory Respiratory exam: Present: CTAB. Absent: accessory muscle use, rales, rhonchi, wheezes - Cardiovascular Cardiovascular exam: Present: RRR, +S1, +S2. Absent: diastolic murmur, gallop, rubs, systolic murmur - GI/Abdominal GI/Abdominal exam: Present: normal bowel sounds, soft, no peritoneal signs. Absent: distended, tenderness - exam: Present: scrotal swelling (erythematous, s/p biopsy, still cleaner tube to touch, swollen) - Extremities Exam Extremities exam: Present: warm, radial pulses palpable and symetrical. Absent : calf tenderness, cyanotic, pedal edema - Neurological Exam Neurological exam: Present: CN II-XII intact, oriented X3, no focal deficits. Absent: pronater drift, facial droop, speech deficit - Skin Skin exam: Present: dry, intact Internal Medicine: Result - Labs CBC & Chem 7: 12/08/16 04:55 12/08/16 04:55 - ABG Interpretation ABG results: PT/INR, D-dimer PT 11.1 Seconds (9.4-12.1) 12/07/16 01:39 Consult Discharge Plan - Plan Referrals: Scarlett Brito [employer] SAL[employer] REPRESENTATIVE [Primary Care Provider] - <Max Street - Last Filed: 12/09/16 17:29> Date of Encounter: 12/09/16 - Constitutional Vitals: Temp Pulse Resp BP Pulse Ox 98.6 F 87 17 145/97 98 12/09/16 15:20 12/09/16 15:20 12/09/16 15:20 12/09/16 15:20 12/09/16 15:20 Internal Medicine: Result - Labs CBC & Chem 7: 12/08/16 04:55 12/08/16 04:55 - ABG Interpretation ABG results: PT/INR, D-dimer PT 11.1 Seconds (9.4-12.1) 12/07/16 01:39 - Attending Attestation I examined this patient and my medical decision-making was reviewed with the PLUMBER APPRENTICE/PA/Advanced Practice Nurse/Resident Physician. I agree with the documented findings, disposition and treatment plan as described except to the extent set forth below. . Impressive and extremely painful scrotal erythema with leukocytosis, did not get better with PO Augmentin and steroids. No gas noted in the CT, no crepitation on physical exam. Leukocytosis resolved with vancomycin and Zosyn. Afebrile. Evaluated by urology, underwent biopsy today. To be reviewed by the dermatopathologist for further recommendations.
[2016-12-09] MEDS ORDERED: Lidocaine 1% 20 ML MDV INFILT ONE (08:45)
[2016-12-09] MEDS: hydroCHLOROthiazide 25 MG TABLET PO SCH (08:52)
--- NOTE | 2016-12-09 09:50 | Urology Progress Note ---
Date of Encounter: 12/09/16 Time of Encounter: 09:48 - Assessment and Plan (1) Rash on scrotum Current Visit: Yes Status: Acute Assessment and plan: patient was preped and draped in sterile fashion. 1% lidocaine was instilled into scrotum. I then used a scalpel to excise a 1.5x1.5cm area of the lesion. The skin was then closed using 4-0 chromic. tolerated well. Progress Note Narrative: still with scrotal lesion. pain the same. Objective Initial Vital Signs Temp Pulse Resp BP Pulse Ox 98.8 F 85 18 192/67 99 12/06/16 11:11 12/06/16 11:11 12/06/16 11:11 12/06/16 11:11 12/06/16 11:11 - General physical appearance Present: well developed - Abdomen Present: soft - Labs 12/08/16 04:55 12/08/16 04:55 Consult Discharge Plan - Plan Referrals: Scarlett Brito CNP [Primary Care Provider] -
[2016-12-10] MEDS ORDERED: methylPREDNISolone 125 MG/2 ML VIAL IVP ONE (01:00)
[2016-12-10] MEDS ORDERED: Nystatin POWDER 30 GM BOTTLE TP SCH (01:15)
[2016-12-10] MEDS ORDERED: *HR* LORazepam 2 MG/ML VIAL IVP ONE (01:58)
[2016-12-10] MEDS: Piperacillin/Tazobactam 3.375 GM in D5% in Water (Mini-Bag+) 100 ML IVPB SCH ×2 (03:43→12:34)
[2016-12-10 05:20] LABS: eGFR For African Americans > 60 (> 60); eGFR For Non-African Americans > 60 (> 60)
[2016-12-10] MEDS: Vancomycin 1,000 MG in D5% in Water 250 ML IVPB SCH ×2 (06:19→18:12)
[2016-12-10] MEDS: *HR* Heparin 5,000 UNIT/ML VIAL SQ SCH ×2 (06:20→18:11)
[2016-12-10 07:42] LABS: ANA IgG by ELISA NONE DETECTED (None Detected)
--- NOTE | 2016-12-10 08:12 | Internal Med Progress Note ---
Date of Encounter: 12/10/16 Time of Encounter: 08:12 - Assessment and plan (1) Scrotal erythema Current Visit: Yes Status: Acute (2) Cellulitis of scrotum Current Visit: Yes Status: Acute (3) Elevated troponin Current Visit: Yes Status: Acute (4) Hypertension Current Visit: Yes Status: Chronic Qualifiers: Hypertension type: essential hypertension Qualified Code(s): I10 - Essential (primary) hypertension (5) DVT prophylaxis Current Visit: Yes Status: Acute - Subjective Interval history: Pt seen and examined, still painful scrotum, s/p biopsy today. - Constitutional Vitals: Temp Pulse Resp BP Pulse Ox 97.9 F 92 14 143/80 93 L 12/10/16 06:31 12/10/16 06:31 12/10/16 06:31 12/10/16 06:31 12/10/16 06:31 General appearance: Present: cooperative, A&O X 3, answers questions appropriately Internal Medicine: Result - Labs CBC & Chem 7: 12/08/16 04:55 12/10/16 04:57 Labs: BMP 12/10/16 04:57 Creatinine 1.03 - ABG Interpretation ABG results: PT/INR, D-dimer PT 11.1 Seconds (9.4-12.1) 12/07/16 01:39 Consult Discharge Plan - Plan Referrals: Scarlett Brito CNP [Primary Care Provider] -
[2016-12-10] MEDS ORDERED: predniSONE 20 MG TABLET PO SCH (09:00)
[2016-12-10] MEDS: hydroCHLOROthiazide 25 MG TABLET PO SCH (09:02)
[2016-12-10 09:06] LABS: Basophils % 0.1 %; Eosinophils % 0.1 %; Hematocrit 48.6 % (37.5-50.1); Immature Granulocytes % 0.7 % (0-4); Lymphocytes # 0.4 K/mcL (0.6-4.6); Lymphocytes % 5.1 %; Mean Corpuscular HGB Conc 33.1 g/dL (31.6-35.5); Mean Corpuscular Hemoglobin 29.9 pg (28.0-33.3); Mean Corpuscular Volume 90.3 fL (83.0-100.0); Mean Platelet Volume 9.5 fL (9.4-12.4); Monocytes # 0.1 K/mcL (0.0-1.3); Monocytes % 1.6 %; Neutrophils # 6.5 K/mcL (1.6-8.9); Platelet Count 226 K/mcL (140-400); Red Blood Count 5.38 M/mcL (4.19-5.50); Red Cell Distribution Width 14.3 % (11.5-14.5); Segmented Neutrophils % 92.4 %
[2016-12-10 09:07] LABS: Hemoglobin 16.1 g/dL (12.9-16.9)
[2016-12-10 09:34] LABS: BUN/Creatinine Ratio 20 (6-26); Blood Urea Nitrogen 24 mg/dL (8-26); C-Reactive Protein 34 mg/L (Less than 5); Calcium 9.3 mg/dL (8.6-10.8); Carbon Dioxide 22 mEq/L (19-29); Chloride 101 mEq/L (98-109); Glucose 197 mg/dL (70-99); Magnesium 2.1 mg/dL (1.6-2.6); Osmolality,Calculated 294 (280-300); Phosphorous 2.9 mg/dL (2.3-4.7); Potassium 4.3 mEq/L (3.5-4.5); Sodium 137 mEq/L (136-145); eGFR For African Americans > 60 (> 60); eGFR For Non-African Americans 57 (> 60)
--- NOTE | 2016-12-10 13:00 | Electrocardiograph Report ---
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
[2016-12-10] MEDS: *HR* Morphine 2 MG/ML SYRINGE IV PRN (14:22)
--- NOTE | 2016-12-10 16:34 | Internal Med Progress Note ---
Date of Encounter: 12/10/16 Time of Encounter: 13:30 - Assessment and plan (1) Cellulitis of scrotum Current Visit: Yes Status: Acute Assessment and plan: Patient failed outpatient therapy with Augmentin and prednisone Responding well to vancomycin and Zosyn Leukocytosis resolved Status post skin biopsy from the scrotum We will continue IV antibiotics at this time (2) Hyperglycemia Current Visit: Yes Status: Acute Assessment and plan: No noted history of diabetes We will obtain A1c Continue to monitor (3) DVT prophylaxis Current Visit: Yes Status: Acute Assessment and plan: Heparin SQ. (4) Hypertension Current Visit: Yes Status: Chronic Assessment and plan: BP within acceptable range Continue home medications Qualifiers: Hypertension type: essential hypertension Qualified Code(s): I10 - Essential (primary) hypertension - Subjective Interval history: Patient seen and examined, with present at bedside. Patient states his pain is significantly improved as long as he does not touch his scrotum or moves. He states the minute he scrotum touches his bilateral inner thighs, he is in severe pain. He also reports of lower extremity rash that started after his hospitalization, and states it is itchy however controlled with the anti- itch/calming lotions. - Constitutional Vitals: Temp Pulse Resp BP Pulse Ox 97.9 F 96 14 127/77 95 12/10/16 10:35 12/10/16 10:35 12/10/16 10:35 12/10/16 10:35 12/10/16 10:35 General appearance: Present: cooperative, A&O X 3, pleasant, no acute distress, obese, answers questions appropriately - Head Head exam: Present: atraumatic, normocephalic - Eye Eye exam: Present: normal appearance, conjuntiva pink, sclera anicteric - Respiratory Respiratory exam: Present: CTAB. Absent: respiratory distress, wheezes - Cardiovascular Cardiovascular exam: Present: RRR, +S1, +S2 - GI/Abdominal GI/Abdominal exam: Present: distended (Obese), normal bowel sounds, soft. Absent: tenderness - exam: Present: scrotal swelling (Erythema/serous discharge noted from the scrotum) - Extremities Exam Extremities exam: Present: pedal edema, warm, radial pulses palpable and symetrical (Bilateral lower extremity ecchymotic rash). Absent: calf tenderness , tenderness - Neurological Exam Neurological exam: Present: alert, oriented X3 - Psychiatric Psychiatric exam: Present: normal affect, normal mood Internal Medicine: Result - Labs CBC & Chem 7: 12/10/16 08:42 12/10/16 08:42 Labs: Short CBC 12/10/16 Range/Units 08:42 WBC 7.1 (4.3-11.1) K/mcL Hgb 16.1 D (12.9-16.9) g/dL Hct 48.6 (37.5-50.1) % Plt Count 226 (140-400) K/mcL Neutrophils # 6.5 (1.6-8.9) K/mcL BMP 12/10/16 12/10/16 04:57 08:42 Sodium 137 Potassium 4.3 Chloride 101 Carbon Dioxide 22 BUN 24 Creatinine 1.03 1.21 Glucose 197 H Calcium 9.3 - ABG Interpretation ABG results: PT/INR, D-dimer PT 11.1 Seconds (9.4-12.1) 12/07/16 01:39 Consult Discharge Plan - Plan Referrals: Scarlett Brito CNP [Primary Care Provider] -
[2016-12-11] MEDS: Piperacillin/Tazobactam 3.375 GM in D5% in Water (Mini-Bag+) 100 ML IVPB SCH ×3 (00:23→17:42)
[2016-12-11] MEDS: *HR* Morphine 2 MG/ML SYRINGE IV PRN (03:32)
[2016-12-11] MEDS ORDERED: *HR* LORazepam 2 MG/ML VIAL IVP PRN (04:09)
[2016-12-11 05:35] LABS: Basophils % 0.2 %; Eosinophils # 0.1 K/mcL (0.0-0.6); Eosinophils % 0.7 %; Hematocrit 46.1 % (37.5-50.1); Hemoglobin 15.4 g/dL (12.9-16.9); Immature Granulocytes % 0.7 % (0-4); Lymphocytes # 1.2 K/mcL (0.6-4.6); Lymphocytes % 13.5 %; Mean Corpuscular HGB Conc 33.4 g/dL (31.6-35.5); Mean Corpuscular Hemoglobin 30.1 pg (28.0-33.3); Mean Platelet Volume 9.5 fL (9.4-12.4); Monocytes # 0.8 K/mcL (0.0-1.3); Monocytes % 9.3 %; Neutrophils # 6.8 K/mcL (1.6-8.9); Platelet Count 236 K/mcL (140-400); Red Blood Count 5.12 M/mcL (4.19-5.50); Red Cell Distribution Width 14.2 % (11.5-14.5); Segmented Neutrophils % 75.6 %
[2016-12-11 05:43] LABS: Hemoglobin A1C 5.7 %
[2016-12-11 05:45] LABS: BUN/Creatinine Ratio 23 (6-26); Blood Urea Nitrogen 28 mg/dL (8-26); Carbon Dioxide 22 mEq/L (19-29); Chloride 103 mEq/L (98-109); Glucose 118 mg/dL (70-99); Magnesium 1.9 mg/dL (1.6-2.6); Osmolality,Calculated 293 (280-300); Phosphorous 2.7 mg/dL (2.3-4.7); Potassium 3.6 mEq/L (3.5-4.5); Sodium 138 mEq/L (136-145); eGFR For African Americans > 60 (> 60); eGFR For Non-African Americans 56 (> 60)
[2016-12-11] MEDS: Vancomycin 1,000 MG in D5% in Water 250 ML IVPB SCH (06:40)
[2016-12-11] MEDS: *HR* Heparin 5,000 UNIT/ML VIAL SQ SCH ×2 (06:40→18:37)
[2016-12-11] MEDS: hydroCHLOROthiazide 25 MG TABLET PO SCH (07:48)
[2016-12-11] MEDS ORDERED: *HR* LORazepam 1 MG TABLET PO PRN (13:37)
--- NOTE | 2016-12-11 14:21 | Urology Progress Note ---
Date of Encounter: 12/11/16 Time of Encounter: 14:20 - Assessment and Plan (1) Rash on scrotum Current Visit: Yes Status: Acute Assessment and plan: path pending. will have derm evaluate Progress Note Narrative: patient seen. pathology pending. having significant discomfort on scrotum. Objective Initial Vital Signs Temp Pulse Resp BP Pulse Ox 98.8 F 85 18 192/67 99 12/06/16 11:11 12/06/16 11:11 12/06/16 11:11 12/06/16 11:11 12/06/16 11:11 - General physical appearance Present: well developed - Abdomen Present: soft - Genitourinary Present: other (irritated scrotum ) - Labs 12/11/16 05:05 12/11/16 05:05 Diabetes panel 12/11/16 12/11/16 Range/Units 05:05 05:05 Sodium 138 (136-145) mEq/L Potassium 3.6 (3.5-4.5) mEq/L Chloride 103 (98-109) mEq/L Carbon Dioxide 22 (19-29) mEq/L BUN 28 H (8-26) mg/dL Creatinine 1.23 (0.72-1.25) mg/dL Glucose 118 H (70-99) mg/dL Hemoglobin A1c 5.7 H ( - 5.6) % Calcium 9.0 (8.6-10.8) mg/dL Calcium panel 12/11/16 Range/Units 05:05 Calcium 9.0 (8.6-10.8) mg/dL Phosphorus 2.7 (2.3-4.7) mg/dL Pituitary panel 12/11/16 Range/Units 05:05 Sodium 138 (136-145) mEq/L Potassium 3.6 (3.5-4.5) mEq/L Chloride 103 (98-109) mEq/L Carbon Dioxide 22 (19-29) mEq/L BUN 28 H (8-26) mg/dL Creatinine 1.23 (0.72-1.25) mg/dL Glucose 118 H (70-99) mg/dL Calcium 9.0 (8.6-10.8) mg/dL Adrenal panel 12/11/16 Range/Units 05:05 Sodium 138 (136-145) mEq/L Potassium 3.6 (3.5-4.5) mEq/L Chloride 103 (98-109) mEq/L Carbon Dioxide 22 (19-29) mEq/L BUN 28 H (8-26) mg/dL Creatinine 1.23 (0.72-1.25) mg/dL Glucose 118 H (70-99) mg/dL Calcium 9.0 (8.6-10.8) mg/dL Consult Discharge Plan - Plan Referrals: Scarlett Brito CNP [Primary Care Provider] -
--- NOTE | 2016-12-11 15:36 | Internal Med Progress Note ---
Date of Encounter: 12/11/16 Time of Encounter: 15:34 - Assessment and plan (1) Cellulitis of scrotum Current Visit: Yes Status: Acute Assessment and plan: Patient failed outpatient therapy with Augmentin and prednisone Responding well to vancomycin and Zosyn Leukocytosis resolved Status post skin biopsy from the scrotum We will continue IV antibiotics at this time Awaiting scrotal skin biopsy results Urology eval appreciated Derm eval pending (2) Hyperglycemia Current Visit: Yes Status: Acute Assessment and plan: resolved A1C noted will continue to monitor (3) DVT prophylaxis Current Visit: Yes Status: Acute Assessment and plan: Heparin SQ. (4) Hypertension Current Visit: Yes Status: Chronic Assessment and plan: BP within acceptable range Continue home medications Qualifiers: Hypertension type: essential hypertension Qualified Code(s): I10 - Essential (primary) hypertension - Subjective Interval history: Patient seen and examined, with present at bedside. continues to have scrotum pain and swelling. Urology on board. Urology consulted dermatology and awaiting pathology report. - Constitutional Vitals: Temp Pulse Resp BP Pulse Ox 98.8 F 97 17 128/78 97 12/11/16 14:43 12/11/16 14:43 12/11/16 14:43 12/11/16 14:43 12/11/16 14:43 General appearance: Present: cooperative, A&O X 3, pleasant, no acute distress, obese, answers questions appropriately - Head Head exam: Present: atraumatic, normocephalic - Eye Eye exam: Present: normal appearance, conjuntiva pink, sclera anicteric - Respiratory Respiratory exam: Present: CTAB. Absent: respiratory distress, wheezes - Cardiovascular Cardiovascular exam: Present: RRR, +S1, +S2 - GI/Abdominal GI/Abdominal exam: Present: normal bowel sounds, soft. Absent: tenderness - exam: Present: scrotal swelling (diffuse erythema) - Extremities Exam Extremities exam: Present: pedal edema, warm, radial pulses palpable and symetrical. Absent: calf tenderness, tenderness - Neurological Exam Neurological exam: Present: alert, oriented X3 - Psychiatric Psychiatric exam: Present: normal affect, normal mood Internal Medicine: Result - Labs CBC & Chem 7: 12/11/16 05:05 12/11/16 05:05 Labs: Short CBC 12/11/16 Range/Units 05:05 WBC 9.0 (4.3-11.1) K/mcL Hgb 15.4 (12.9-16.9) g/dL Hct 46.1 (37.5-50.1) % Plt Count 236 (140-400) K/mcL Neutrophils # 6.8 (1.6-8.9) K/mcL BMP 12/11/16 05:05 Sodium 138 Potassium 3.6 Chloride 103 Carbon Dioxide 22 BUN 28 H Creatinine 1.23 Glucose 118 H Calcium 9.0 - ABG Interpretation ABG results: PT/INR, D-dimer PT 11.1 Seconds (9.4-12.1) 12/07/16 01:39 Consult Discharge Plan - Plan Referrals: Scarlett Brito CNP [Primary Care Provider] -
--- NOTE | 2016-12-11 17:46 | Dermatology Consult Note ---
Date of Encounter: 12/11/16 Time of Encounter: 17:36 History of Present Illness Reason for Consult: Rash on scrotum History of Present Illness: Scot Valentin is an 81 year old male who is admitted to the hospital for suspected scrotal cellulitis. He reports that he has a history of a rash on his lower legs for over a year that is itchy and comes and goes. He reports that the rash on his scrotum started over 3 months ago. He reports severe intermittent tenderness. He denies itching. he reports it is relieved only when he kneels and his scrotum is not touching anything. He did not recall the names of all of the treatments that he has used but after calling [facility] in [place] I discovered that he has been prescribed a 12 day prednisone taper starting at 60mg, and two 5 day prednisone tapers from october through November with little help. He has used clobetasol solution 0.05 % mixed with cerave cream with little help and he was prescribed efudex cream 5 % for his other condition (porokeratosis) that he did not use on his scrotum in the last 3 months. He has also tried his 's steroid cream fluocinonide with no help. He was treated with augmentin and prednisone as an outpatient for suspected cellulitis with no help. He was admitted to the hospital earlier this week ( afebrile with an elevated white count )and treated with zosyn and vancomycin and topical lidocaine with some help. His white blood cell count has resolved. CT shows edema of soft tissue. A biopsy was done showing non specific inflammation (may be compatible with cellulitis) GMS and Gram stains are pending. Review of Systems General/Constitutional: Patient denies fevers, chills, nor recent unintended weight loss, night sweats, no change in appetite or malaise. Hematologic: Patient denies new or enlarging lumps or bumps. Skin: Patient denies new or changing moles, or rash other than what is mentioned above. General/Constitutional: Patient denies fevers, chills, no recent unintended weight loss, night sweats, no change in appetite or malaise.. Hematology: Patient denies new or enlarging lumps or bumps.. Skin: Patient denies new or changing moles, or rash other than what is mentioned above.. Past Med Surg Social Fam HX - Past Medical History Medical history: no medical history Psychiatric history: no psych history - Social History Smoking Status: Never smoker Smokeless Tobacco Status: No Alcohol use: none Drug use: none Medications and Allergies Acetaminophen [Tylenol] 500 mg PO Q6HR PRN 12/06/16 [History] Amoxicillin/Clavulanate [Augmentin] 875 mg PO BIDWM 12/06/16 [History] RX: PredniSONE [Prednisone] 30 mg PO DAILY 12/06/16 [History] Allergies No Known Allergies Allergy (Verified 12/06/16 11:14) Examination Vital Signs: Temp Pulse Resp BP Pulse Ox 98.8 F 97 17 128/78 97 12/11/16 14:43 12/11/16 14:43 12/11/16 14:43 12/11/16 14:43 12/11/16 14:43 General Examination: The patient appears alert, oriented X3, in no acute distress, healthy-appearing , normal mood. A detailed skin examination of sites including: scalp, head, neck , face, conjunctive, lids, lips, back, chest/breast/axilla, abdomen, bilateral upper extremities including hands/digits/fingernails, bilateral lower extremities including feet/digits/toenails, genital/groin/buttock, lymph nodes, was completed and found to be normal except: - There are indistinct, light brown patches with an obvious threadlike border involving lower legs bilaterally -- there is well-demarcated erythematous macerated plaques involving lateral and anterior scrotum bilaterally with peripheral dry lichenified skin border, sparing medial raphe --perifollicular red pustules and papules and hyperpigmented macules on thighs and buttocks bilaterally - Assessment and Plan (1) Rash and nonspecific skin eruption Current Visit: Yes Status: Acute original biopsy results pending - awaiting GMS and gram stains - second biopsy of intact dry skin at periphery of scrotum also submitted -swab bacterial and viral culture taken today - at this time, 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 The procedure, risks, benefits, alternatives and expected outcomes were discussed with the patient and consent was obtained. Time out called. Patient identified, procedure verified, site(s) identified and verified. Patient and staff present in agreement. Area(s) prepped with alcohol and anesthetized with 01.0% lidocaine with epinephrine at 1:100,000 concentration. 2ml of lidocaine with epinephrine were injected scrotum. Biopsy(s) of lesion performed. 20% AlCl and bandaging applied. Specimen(s) sent to pathology. Patient instructed in routine post-op care and wound care handout given. 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 The procedure, risks, benefits, alternatives and expected outcomes were discussed with the patient and consent was obtained. Time out called. Patient identified, procedure verified, site(s) identified and verified. Patient and staff present in agreement. Area(s) prepped with alcohol and anesthetized with 01.0% lidocaine with epinephrine at 1:100,000 concentration. 2ml of lidocaine with epinephrine were injected scrotum. Biopsy(s) of lesion performed. 20% AlCl and bandaging applied. Specimen(s) sent to pathology. Patient instructed in routine post-op care and wound care handout given. Consult Discharge Plan - Plan Referrals: Scarlett Brito CNP [Primary Care Provider] -
[2016-12-11 18:16] LABS: HSV Source SCROTUM
[2016-12-11] MEDS: *HR* HYDROcodone/Acet 5/325 mg TABLET PO PRN (22:00)
[2016-12-12] MEDS: Piperacillin/Tazobactam 3.375 GM in D5% in Water (Mini-Bag+) 100 ML IVPB SCH ×2 (00:23→07:56)
[2016-12-12] MEDS: *HR* HYDROcodone/Acet 5/325 mg TABLET PO PRN ×2 (04:54→15:10)
[2016-12-12 05:30] LABS: Basophils % 0.4 %; Eosinophils # 0.3 K/mcL (0.0-0.6); Eosinophils % 3.5 %; Hematocrit 44.6 % (37.5-50.1); Hemoglobin 15.1 g/dL (12.9-16.9); Immature Granulocytes % 0.3 % (0-4); Lymphocytes # 1.2 K/mcL (0.6-4.6); Lymphocytes % 16.2 %; Mean Corpuscular HGB Conc 33.9 g/dL (31.6-35.5); Mean Corpuscular Hemoglobin 30.4 pg (28.0-33.3); Mean Corpuscular Volume 89.7 fL (83.0-100.0); Mean Platelet Volume 9.8 fL (9.4-12.4); Monocytes # 0.7 K/mcL (0.0-1.3); Monocytes % 9.3 %; Neutrophils # 5.2 K/mcL (1.6-8.9); Platelet Count 222 K/mcL (140-400); Red Blood Count 4.97 M/mcL (4.19-5.50); Red Cell Distribution Width 14.4 % (11.5-14.5); Segmented Neutrophils % 70.3 %
[2016-12-12 05:53] LABS: BUN/Creatinine Ratio 27 (6-26); Blood Urea Nitrogen 29 mg/dL (8-26); Calcium 8.7 mg/dL (8.6-10.8); Carbon Dioxide 26 mEq/L (19-29); Chloride 104 mEq/L (98-109); Glucose 105 mg/dL (70-99); Osmolality,Calculated 292 (280-300); Phosphorous 3.4 mg/dL (2.3-4.7); Potassium 3.8 mEq/L (3.5-4.5); Sodium 138 mEq/L (136-145); eGFR For African Americans > 60 (> 60); eGFR For Non-African Americans > 60 (> 60)
[2016-12-12] MEDS: *HR* Heparin 5,000 UNIT/ML VIAL SQ SCH (06:11)
[2016-12-12] MEDS ORDERED: Vancomycin 1,250 MG in D5% in Water 250 ML IVPB SCH (07:00)
[2016-12-12] MEDS: hydroCHLOROthiazide 25 MG TABLET PO SCH (07:57)
[2016-12-12 08:23] LABS: HSV 1 DNA Not Detected (Not Detect); HSV 2 DNA Not Detected
[2016-12-12 11:35] VITALS: BP 110/73
--- NOTE | 2016-12-12 12:26 | Discharge Summary ---
Date of Encounter: 12/12/16 Time of Encounter: 12:18 - Discharge Diagnosis (1) Cellulitis of scrotum Priority: Primary Status: Acute (2) Hyperglycemia Priority: Secondary Status: Resolved (3) DVT prophylaxis Priority: Secondary Status: Acute (4) Hypertension Priority: Secondary Status: Chronic Qualifiers: Hypertension type: essential hypertension Qualified Code(s): I10 - Essential (primary) hypertension - Discharge Medications Prescriptions: HYDROcodone/Acet 5/325 mg [[place] 5-325 mg] 1 tab PO Q6HR PRN #20 tablet PRN Reason: Pain Betamethasone Dipropionate 15 gm TP DAILY #2 oint...g. Cephalexin [Keflex] 500 mg PO BID #14 capsule LORazepam [Ativan] 1 mg PO Q12H PRN #10 tablet PRN Reason: Anxiety Lidocaine Jelly [Glydo] 1 appl TP Q4H PRN #2 jel.pf.victor hugo PRN Reason: scrotal pain Home Medications: Acetaminophen [Tylenol] 500 mg PO Q6HR PRN 12/06/16 [History] Betamethasone Dipropionate 15 gm TP DAILY #2 oint...g. 12/12/16 [Rx] Cephalexin [Keflex] 500 mg PO BID #14 capsule 12/12/16 [Rx] HYDROcodone/Acet 5/325 mg [[place] 5-325 mg] 1 tab PO Q6HR PRN #20 tablet [Rx] LORazepam [Ativan] 1 mg PO Q12H PRN #10 tablet 12/12/16 [Rx] Lidocaine Jelly [Glydo] 1 appl TP Q4H PRN #2 jel.pf.victor hugo 12/12/16 [Rx] Allergies/Adverse Reactions: Allergies No Known Allergies Allergy (Verified 12/06/16 11:14) Date of admission: 12/07/16 09:37 Primary care physician: Scarlett Brito, Consults: 12/07/16 09:58 Consult to Urology [CONS] Routine Consulting Provider: [facility] [place] Reason for Consult: scrotum cellulitis, sepsis Time Notified: 10:01 Call Completed: Yes 12/11/16 12:32 Consult to Dermatology [CONS] Routine Consulting Provider: [facility] [place] Reason for Consult: scrotal and systemic rash Call Completed: Yes 12/12/16 07:42 Consult to Physical Therapy [CONS] Stat Comment: Evaluate, develop and implement POC - Patient Status Disposition: Home, Self-Care Condition: Good Functional capacity at discharge: uses cane/walker Overall status at discharge: patient is back to baseline - Discharge Instructions Follow Up With: Scarlett Brito CNP [Primary Care Provider] - 12/18/16 1:00 pm Nadya Robbins MD [Partnered Physician] - 12/17/16 9:10 am Additional Instructions: Please follow-up with your primary care physician and confidential secretary within 1 week after discharge from the hospital Please use the lidocaine gel as prescribed for scrotal pain. Please apply prescribed betamethasone topical ointment once daily on the scrotum. Please continue oral antibiotics for 7 more days. Please continue all your other medications as prescribed by her primary care physician - Diet and Activity Activity: resume usual activities as tolerated Diet: low salt diet Hospital course: Mr. 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 He was admitted for management of scrotal cellulitis status post failing outpatient treatment. He was started on IV antibiotics and pain medications. His initial leukocytosis resolved and he was further seen by urologist. He had a scrotal skin biopsy which was further reviewed by dermatology. As per dermatology it appears to be scrotal cellulitis and patient can be transitioned to oral antibiotics. He is to continue with topical lidocaine gel for pain relief and to be started on topical steroid ointment once daily. Patient reports of feeling better since admission and is stable for discharge. He is to follow-up with primary care physician, and confidential secretary within 1 week after his discharge. He is to continue oral antibiotics and the topical ointment as prescribed. He was evaluated by physical therapy and no further rehabilitation was recommended. Reports of having a walker at home and states he is independent with his daily ADLs. He will be discharged to home today. Patient demonstrates understanding of his diagnosis, discharge care and plan. - Time Spent with Patient Total time spent providing and/or coordinating discharge services: Greater than 30 minutes - Constitutional Vitals: Temp Pulse Resp BP Pulse Ox 97.8 F 90 16 110/73 93 L 12/12/16 11:34 12/12/16 11:34 02/08/17 11:34 12/12/16 11:34 12/12/16 11:34 General appearance: Present: cooperative, A&O X 3, pleasant, no acute distress, obese, answers questions appropriately - Head Head exam: Present: atraumatic, normocephalic - Eye Eye exam: Present: normal appearance, conjuntiva pink, sclera anicteric - Respiratory Respiratory exam: Present: CTAB. Absent: respiratory distress, wheezes - Cardiovascular Cardiovascular exam: Present: RRR, +S1, +S2 - GI/Abdominal GI/Abdominal exam: Present: distended (obese), normal bowel sounds, soft. Absent: tenderness - Additional comments: scrotal erythema/swelling - Extremities Exam Extremities exam: Present: warm, radial pulses palpable and symetrical. Absent : calf tenderness, pedal edema, tenderness - Neurological Exam Neurological exam: Present: alert, oriented X3 - Psychiatric Psychiatric exam: Present: normal affect, normal mood
[2016-12-12] MEDS ORDERED: Aminoglycoside Consult 1 EACH MC ONE (13:36)
[2016-12-12] MEDS ORDERED: cephALEXin 500 MG CAPSULE PO SCH (21:00)
== END 2016-12-12 16:02 | disposition home or self-care (01) | DRG 872 ==
LOC: 3ANU 11:09 → EMEROO 11:09 → 3ANU 15:35 → SUATTDRO 12-07 09:37
PROVIDERS: ADMIT Internal Medicine; ATTEND Internal Medicine